=== PATIENT | female | born 1985 | race Caucasian/White ===

== ENCOUNTER 2023-10-09 13:53 | Emergency (ER) | payer OTHER, SELFPAY ==
[2023-10-09 13:54] VITALS: BP 118/73
--- NOTE | 2023-10-09 15:34 | ED.SKININJ ---
Addendum entered and electronically signed by Yo Luna PA-C 10/12/23 11:50:
Patient's wound culture grew MRSA. Contacted patient who states that she is feeling much improved with the doxycycline. Advised to continue the antibiotic as prescribed until completion. Aware of return precautions.
Original Note:
HPI-Injury
General
Chief Complaint: Skin Problem
Source: patient
Exam Limitations: none
Time Seen by Provider: 10/09/23 14:36
Nursing documentation reviewed up to this point in time: agreed with
Travel History
Have you had any contact with someone who has COVID-19?: No
Do you have any symptoms of coronavirus? Fever > 100 degrees, chills, cough, shortness of breath, sore throat, loss of taste or smell, muscle aches, or headache?: No
History of Present Illness-Injury
Initial Injury comments:
38-year-old female who states she has an infection behind her right knee, gradually worsening over the past 4 days. She thinks it is MRSA as she has had it before. She denies fever or chills.
Past History
Past History
ED Past Medical History: None
ED Past Surgical History: None
Social History
Tobacco: Non-smoker
Personal: Single
Living: with family
Employment: Not employed
Review of Systems
Review of Systems
Allergies reviewed?: Yes
All Other Systems: ROS reviewed and negative except as documented in HPI and ROS
Constitutional: Denies fever or chills
Skin: Reports other (Redness, swelling and pain behind right knee)
Skin Exam
Abscess
Right popliteal area:
Description of abscess: fluctuant and well organized (dime sized)
Surrounding skin:: other (tiny dark speck on raised purplish dime sized mound, 6 x 3 cm surrounding erythema)
Phy Exam
Physical Exam
Physical Exam:
PHYSICAL EXAMINATION:
General: no apparent distress, not acutely ill
Neuro: alert and oriented.
Psychiatric: well kept. interactive and cooperative
Musculoskeletal: Moves with ease
Skin: Warm, pink.
Course
Orders/Labs/Results
Orders:
Orders
10/09/23 15:38
Lyme Progressive Urgent
Wound Culture [Wound/Abscess/Other Culture] Urgent
BO Source: Abscess
Specimen Description:
Date Specimen was Collected: 10/09/23
Time Specimen was Collected: 15:33
Comment: left popliteal area
Vital Signs
Initial and Last Documented VS:
Initial Vital Signs
Temp Pulse Resp BP Pulse Ox
98.9 F 90 16 118/73 99
10/09/23 13:54 10/09/23 13:54 10/09/23 13:54 10/09/23 13:54 10/09/23 13:54
Last Documented Vital Signs
Temp Pulse Resp BP Pulse Ox
98.9 F 90 16 118/73 99
10/09/23 13:54 10/09/23 13:54 10/09/23 13:54 10/09/23 13:54 10/09/23 13:54
Procedures
Incision/Drainage/Joint Aspiration
R antecubital area:
Anethesia: 1% Lidocaine with Epi
Preparation: cleaned with alcohol wipe
Type of procedure: incise (small nikita 3 mm) and drain
Nature of site: abscess
Description of abscess: less than 3cm
How much fluid was obtained?: scant amount
Fluid description: purulent
Treatment: bandaid applied
MDM/Problems Addressed
Differential Diagnosis Includes:
Staph infection, tick bite, Lyme's
MDM/Problems Addressed:
38-year-old female who states she has an infection behind her right knee, gradually worsening over the past 4 days. She thinks it is MRSA as she has had it before. She denies fever or chills.
After adequate preparation, small nikita made in the center of the abscess and small amount of pus drained, culture sent to lab.
*Critical Care Note
Total Time (30-74mins, 75-104mins- exclusive of procedures): Not Applicable
ED Attending Note
-
Portions of this chart may have been created with voice recognition software.� Occasional wrong word or��sound alike� substitutions may have occurred due to the inherent limitations of voice recognition software.
Discharge Plan
Departure
Patient Disposition: Home (Routine Discharge)
Date of Disposition: 10/09/23
Time of Disposition: 15:30
Patient with high blood pressure during this ER visit?: No
Condition: Good
Discharge Problem:
Cellulitis and abscess of left leg
Instructions: Cellulitis (Skin Infection), Adult (DC), Skin Abscess
Prescriptions:
New
doxycycline monohydrate 100 mg capsule
100 mg PO BID Qty: 20 0RF
mupirocin [Centany] 2 % ointment
1 applic topical TID Qty: 15 0RF
No Action
hydrocodone-acetaminophen 1 TABLET tablet
1 tab PO Q4HPRN PRN (Reason: severe pain) Qty: 10 0RF
Clindamycin Hcl 300 MG Capsule
300 mg PO TID Qty: 30 0RF
fluconazole 150 MG tablet
150 mg PO NOW Qty: 1 1RF
celecoxib 200 MG capsule
200 mg PO BID Qty: 30 0RF
Referrals:
Laith Lange DO [Family Provider] - As needed
Activity Restrictions/Additional Instructions:
As we discussed, this does look like a staph infection. It is also similar to a Lyme's rash. I sent a prescription to your pharmacy for doxycycline to take twice a day for 10 days. If your Lyme test comes back positive you will need another 11
days of the doxycycline and you should contact your family doctor for that prescription. I also sent a prescription to your pharmacy for the mupirocin ointment to apply 3 times a day for the next week.
Interventions
Interventions:
*General Assessment Last Done: 10/09/23 13:54
*ED COVID-19 Vaccine History Last Done: 10/09/23 13:54
*Nursing Disposition Last Done: 10/09/23 16:00
ED-Skin Assessment Last Done: 10/09/23 14:27
Discharge Date and Time
Discharge Date/Time: 10/09/23 16:00
Print Language: URDU
[2023-10-10 14:33] LABS: Lyme Antibody Screen, EIA Negative (Negative)
== END 2023-10-09 16:00 | disposition home or self-care (01) ==
LOC: EMR 13:53
PROVIDERS: Registered Nurse; EMERGENCY PHYSICIAN Emergency Medicine; FAMILY PHYSICIAN Family Medicine
DX: L02.415 Cutaneous abscess of right lower limb (principal); L03.116 Cellulitis of left lower limb; B95.62 Methicillin resistant Staphylococcus aureus infection as the cause of diseases classified elsewhere
CPT/HCPCS: 99283; 10060; 86618; 87070; 87147; 87186; 87205